=== PATIENT | female | born 1980 | race African-American/Black ===

== ENCOUNTER 2019-09-30 04:35 | Emergency (ER) | payer OTHER, SELFPAY ==
[2019-09-30 04:43] VITALS: BP 144/102; PULSE 96; RESP 20; TEMP 36.7; O2SAT 98
--- NOTE | 2019-09-30 04:53 | ED.DENTAL ---
HPI - Dental/Oral General Chief complaint: Dental/Oral Stated complaint: Dental pain Time Seen by Provider: 09/30/19 04:46 History of Present Illness HPI Narrative: Patient presents with dental decay and tooth ache. This been a month now. She has not had fever chills or sweats. Several teeth on the lower right. She does not have a dentist currently. Her is with her and is looking up emergency dental places. She is borderline diabetic. Surgeries include cholecystectomy and tonsillectomy. She does not smoke cigarettes,, or do drugs. She is a teacher. Complaint: tooth pain Location: Tooth # (31,30,29) Onset (ago): week(s) Duration: constant Severity: severe Severity scale (1-10): 10 Relieving factors: nothing Exacerbating factors: chewing Context: history of dental caries Treatment prior to arrival: none Related Data Home Medications Medication Instructions Recorded Confirmed bupropion HCl PO 09/30/19 Allergies Allergy/AdvReac Type Severity Reaction Status Date / Time Sulfa (Sulfonamide Allergy Severe Anaphylaxis Verified 09/30/19 04:49 Antibiotics) Review of Systems Review of Systems: Narrative: CONSTITUTIONAL: Denies fever, chills, or sweats. EYES: Denies visual changes, redness, or discharge. ENT: Denies rhinorrhea, congestion, sore throat, or otalgia. Just the tooth CARDIOVASCULAR: Denies chest pain, palpitations, or edema. RESPIRATORY: Denies cough or dyspnea. GASTROINTESTINAL: Denies abdominal pain, nausea, vomiting, or diarrhea. GENITOURINARY: Denies dysuria or hematuria. SKIN: Denies rash or itching. MUSCULOSKELETAL: Denies back pain, joint pain, or myalgia. NEUROLOGIC: Denies headache, numbness, or weakness. PSYCHIATRIC: Denies anxiety or depression. All systems reviewed & are unremarkable except as noted in HPI and below PMFSH Past Medical History Medical History Depression Surgical History Surgical History History of tonsillectomy Hx of cholecystectomy Family History Family History (Updated 09/20/15 @ 23:19 by DOCTOR UNKNOWN) Father Hypertension Mother Family history of malignant neoplasm of breast in first degree relative Other Cerebrovascular accident Diabetes mellitus Family history of cardiovascular disease Family history of heart disease in male family member before age 55 Family history of malignant neoplasm Social History Social History Smoking status: Heavy tobacco smoker Second hand tobacco smoke exposure: No Alcohol intake: current Exam Narrative: Exam Narrative: GENERAL: Well-appearing, well-nourished, in moderate distress. Holding her right jaw in her right hand.. HEAD: Normocephalic, atraumatic. EYES: PERRLA and EOMI. ENT: Nares clear, no rhinorrhea or epistaxis. Mucous membranes moist. Multiple caries and fillings. Tender under the right jaw. No visible swelling. NECK: Supple. CHEST: Clear to auscultation. No respiratory distress. HEART: Regular rate and rhythm. No murmur heard. Normal peripheral pulses. ABDOMEN: Soft, nontender, nondistended, normal active bowel sounds. EXTREMITIES: Normal range of motion. No edema. SKIN: Warm, dry, no rash. NEURO: No focal deficits. Alert and oriented x3. PSYCH: Crying. Course Reevaluation(s) Reevaluation #1: Her pain is somewhat improved. Her has located [facility] for an appointment for Wednesday. He is going to try the other [place] locations to see if he can get an appointment for today. Date: 09/30/19 Time: 06:44 Vital Signs Vital signs: Vital Signs Temperature 98.0 F 09/30/19 04:43 Pulse Rate 96 09/30/19 04:43 Respiratory Rate 20 09/30/19 04:43 Blood Pressure 144/102 H 09/30/19 04:43 Pulse Oximetry 98 09/30/19 04:43 Temperature 98.0 F 09/30/19 04:43 Pulse Rate 96 08
[2019-09-30] MEDS: AMOXICILLIN/CLAVULANATE K 875-125 MG TAB 1 TABLET PO (05:05)
[2019-09-30 07:00] VITALS: BP 140/90; PULSE 90; RESP 19; O2SAT 96
== END 2019-09-30 07:00 | disposition home or self-care (01) ==
PROVIDERS: Emergency Provider Emergency Medicine
DX: K02.9 Dental caries, unspecified (principal)
CPT/HCPCS: 96372; 99284; A9270; J1170